=== PATIENT | female | born 1935 | race Caucasian/White ===

== ENCOUNTER 2016-07-09 01:49 | Emergency (ER) | payer MEDICARE, OTHER ==
[~2016-07-09 01:49] MED LIST: FLEXERIL 10 MG10 MG PO; LEXAPRO5 MG PO; LOPRESSOR 25 MG25 MG PO; NORVASC 5 MG TAB5 MG PO; PRAVACHOL20 MG PO; ZYRTEC10 MG PO
== END 2016-07-09 04:20 | disposition left against medical advice (07) ==
LOC: ER1 01:49
DX: Z53.21 Procedure and treatment not carried out due to patient leaving prior to being seen by health care provider (principal)

== ENCOUNTER 2016-09-03 16:18 | Emergency (ER) | payer MEDICARE, OTHER | END 2016-09-03 22:26 | disposition home or self-care (01) | LOC: ER1 16:18 | DX: S01.81XA Laceration without foreign body of other part of head, initial encounter (principal); S16.1XXA Strain of muscle, fascia and tendon at neck level, initial encounter; S80.11XA Contusion of right lower leg, initial encounter; E11.9 Type 2 diabetes mellitus without complications; I10 Essential (primary) hypertension; Z79.84 Long term (current) use of oral hypoglycemic drugs; V43.62XA Car passenger injured in collision with other type car in traffic accident, initial encounter; Y92.410 Unspecified street and highway as the place of occurrence of the external cause; Z88.2 Allergy status to sulfonamides | CPT/HCPCS: 12001; 70450; 72125; 73590; 99283 ==

== ENCOUNTER 2020-12-31 16:21 | Emergency (ER) | payer OTHER ==
[2020-12-31 17:04] LABS: HEMOGLOBIN 13.4 gm/dl (12.3-15.3); RED BLOOD COUNT 4.43 M/UL (4.00-5.10); WHITE BLOOD COUNT 9.2 K/UL (4.5-11.0)
[2020-12-31 17:32] LABS: BUN/CREATININE RATIO 15 (0-10)
[2020-12-31] MEDS ORDERED: OMNICEF 300 MG300 MG PO (22:04)
[2020-12-31] MEDS ORDERED: LISINOPRIL20 MG PO (22:04)
== END 2020-12-31 22:20 | disposition home or self-care (01) ==
LOC: ER1 16:21
PROVIDERS: Physician Assistant
DX: I10 Essential (primary) hypertension (principal); N39.0 Urinary tract infection, site not specified; Z87.442 Personal history of urinary calculi; Z79.899 Other long term (current) drug therapy
CPT/HCPCS: 71045; 80053; 81001; 82550; 82553; 83874; 83880; 84484; 85025; 93005; 99284

== ENCOUNTER 2021-02-27 09:42 | Observation (INO) | payer MEDICARE, OTHER ==
[~2021-02-27] VITALS: Ht 170.2 cm; Wt 71.3 kg
[~2021-02-27 09:42] MED LIST changes: +LISINOPRIL20 MG PO; +OMNICEF 300 MG300 MG PO
[2021-02-27 10:15] LABS: HEMOGLOBIN 11.7 gm/dl (12.3-15.3); RED BLOOD COUNT 3.78 M/UL (4.00-5.10); WHITE BLOOD COUNT 15.2 K/UL (4.5-11.0)
[2021-02-27 10:56] LABS: BUN/CREATININE RATIO 13 (0-10)
[2021-02-27] MEDS ORDERED: CATAPRES 0.1MG0.1 MG PO (14:20)
[2021-02-27] MEDS ORDERED: HYDRALAZINE HCL50 MG PO (14:23)
[2021-02-28 06:48] LABS: HEMOGLOBIN 10.1 gm/dl (12.3-15.3); RED BLOOD COUNT 3.41 M/UL (4.00-5.10)
[2021-02-28 06:52] LABS: WHITE BLOOD COUNT 10.4 K/UL (4.5-11.0)
[2021-02-28] MEDS ORDERED: ACETAMINOPHEN325 MG PO (09:44)
[2021-02-28] MEDS ORDERED: CEFUROXIME250 MG PO (09:45)
== END 2021-02-28 18:32 | disposition home or self-care (01) ==
LOC: ER1 09:42 → M/S 11:42 → CDU 11:42 → M/S 13:34
PROVIDERS: Emergency Medicine; Physician Assistant Medical; ADMIT Internal Medicine
DX: S82.842A Displaced bimalleolar fracture of left lower leg, initial encounter for closed fracture (principal); N17.9 Acute kidney failure, unspecified; N30.00 Acute cystitis without hematuria; I10 Essential (primary) hypertension; E11.40 Type 2 diabetes mellitus with diabetic neuropathy, unspecified; M06.9 Rheumatoid arthritis, unspecified; R42 Dizziness and giddiness; D72.829 Elevated white blood cell count, unspecified; D64.9 Anemia, unspecified; Z88.2 Allergy status to sulfonamides; Z79.899 Other long term (current) drug therapy; Z20.822 Contact with and (suspected) exposure to COVID-19; W19.XXXA Unspecified fall, initial encounter
CPT/HCPCS: 96374; 96375; 27810; 36415; 70450; 71045; 73502; 73590; 73610; 80048; 80053; 81001; 82550; 82553; 83735; 83874; 84484; 85025; 85027; 93005; 96376; 99285; G0378; J2270; J2405; J2704; U0002